=== PATIENT | female | born 1960 | race Caucasian/White ===

== ENCOUNTER 2018-12-04 07:38 | Outpatient (CLI) | payer BC ==
--- NOTE | 2018-12-04 10:18 | CT ---
CT ANGIOGRAM CHEST WITH CONTRAST: Date: 12/04/18 HISTORY: Thoracic aortic aneurysm. COMPARISON: CT chest dated 12/16/16. FINDINGS: CT angiogram chest performed after the intravenous administration of contrast. 3D rendering provided. The thyroid is unremarkable. No mediastinal adenopathy. Limited evaluation of the upper abdomen is unremarkable. Heart size is normal. No pericardial effusion. Thoracic spine is unremarkable, as well as the sternum and manubrium. AORTA: The aortic measurements are as follows: Aortic valve: 2.1 cm Sinuses of Valsalva: 3.5 cm Sinotubular junction: 3.0 cm Mid ascending aorta: 4.4 cm Transverse aorta: 2.2 cm Proximal descending thoracic aorta: 2.0 cm Mid descending thoracic aorta: 1.7 cm Diaphragmatic hiatus: 1.8 cm Evaluation of the pulmonary arteries demonstrates no proximal or segmental pulmonary arterial defects . Lungs are clear. No pneumothorax. No effusion. IMPRESSION: Mild interval size increase of the ascending aortic aneurysm, now measuring up to 4.4 cm, previously 4.2 cm. POS: [facility]
== END 2018-12-04 07:39 | disposition home or self-care (01) ==
LOC: SCSCT 07:38
PROVIDERS: ATTEND Specialist
DX: I71.2 Thoracic aortic aneurysm, without rupture (principal)
CPT/HCPCS: 71275

== ENCOUNTER 2019-04-30 10:05 | Outpatient (CLI) | payer BC ==
--- NOTE | 2019-05-02 14:39 | MMO ---
Bilateral MAMMO Bilat Screen [facility]. CLINICAL HISTORY: Patient is 58 years old and is seen for screening. The patient has no family history of breast cancer. The patient has no personal history of cancer. The patient has a history of bilateral mastopexy in 2010 and left needle biopsy in 2007 - benign. VIEWS: The views performed were: bilateral craniocaudal with tomosynthesis; bilateral mediolateral oblique with tomosynthesis; and bilateral exaggerated craniocaudal. FILMS COMPARED: The present examination has been compared to prior imaging studies performed at [facility] on 05/14/2014, 09/17/2014, 04/04/2017 and 04/06/2018. MAMMOGRAM FINDINGS: The breasts are heterogeneously dense, which could obscure a lesion on mammography. There are stable benign appearing calcifications seen in both breasts. There are no suspicious masses, suspicious calcifications, or new areas of architectural distortion. IMPRESSION: THERE IS NO MAMMOGRAPHIC EVIDENCE OF MALIGNANCY. A ROUTINE FOLLOW-UP MAMMOGRAM IN 1 YEAR IS RECOMMENDED. THE RESULTS OF THIS EXAM WERE SENT TO THE PATIENT. ACR BI-RADS Category 2 - Benign finding MAMMOGRAPHY NOTE: 1. A negative mammogram report should not delay a biopsy if a dominant of clinically suspicious mass is present. 2. Approximately 10% to 15% of breast cancers are not detected by mammography. 3. Adenosis and dense breasts may obscure an underlying neoplasm.
== END 2019-04-30 10:06 | disposition home or self-care (01) ==
LOC: BICMAMMO 10:05
PROVIDERS: ATTEND Obstetrics & Gynecology
DX: Z12.31 Encounter for screening mammogram for malignant neoplasm of breast (principal)
CPT/HCPCS: 77063; 77067

== ENCOUNTER 2020-01-02 08:53 | Outpatient (CLI) | payer BC ==
--- NOTE | 2020-01-02 10:39 | CT ---
CT ANGIO OF CHEST PERFORMED WITH INTRAVENOUS CONTRAST ENHANCEMENT WITH 3D RECONSTRUCTIONS: HISTORY: Followup of thoracic aneurysm. COMPARISON: A 12/04/2018 exam. FINDINGS: The lungs are clear of any infiltrative process. No pulmonary nodules or pleural effusions. There is no significant mediastinal or hilar adenopathy. Pulmonary arteries are normal in caliber. There is some motion artifact in the ascending aorta which does somewhat degrade detail. Measurements are as follows: Aortic valve 2.2 cm. Sinus of Valsalva 3.1 cm. Sinotubular junction 3.0 cm. Ascending aorta 4.3 cm . Aortic arch 2.2 cm. Proximal descending thoracic aorta 2.3 cm. IMPRESSION: 1. No significant change in the appearance of the ascending aortic aneurysm. No dissection. 2. Incidental note is made of a right renal cyst. POS: [facility]
[2020-01-02] MEDS ORDERED: Iopamidol-370 76% 500 ML 1 ML ONE (14:39)
== END 2020-01-02 08:54 | disposition home or self-care (01) ==
LOC: BICCT 08:53
PROVIDERS: ATTEND Specialist
DX: I71.2 Thoracic aortic aneurysm, without rupture (principal)
CPT/HCPCS: 71275; Q9967

== ENCOUNTER 2023-07-25 09:30 | Outpatient (CLI) | payer BC | END 2023-07-25 09:31 | disposition home or self-care (01) | LOC: BICMRI 09:30 | PROVIDERS: ATTEND Surgery | DX: D05.12 Intraductal carcinoma in situ of left breast (principal); R59.0 Localized enlarged lymph nodes; I77.810 Thoracic aortic ectasia | CPT/HCPCS: 82565; C8908 ==